=== PATIENT | female | born 1970 ===

== ENCOUNTER 2020-08-20 09:15 | Inpatient (IN) | payer OTHER ==
[~2020-08-20] VITALS: Ht 144.8 cm; Wt 98.4 kg
[2020-08-20] MEDS ORDERED: ZOLOFT100 MG PO (10:37)
[2020-08-20] MEDS ORDERED: SYNTHROID100 MCG PO (10:38)
[2020-08-20] MEDS ORDERED: PEPCID40 MG PO (10:38)
[2020-08-20] MEDS ORDERED: CLONAZEPAM0.5 MG PO (10:39)
[2020-08-20] MEDS ORDERED: SINGULAIR10 MG PO (10:39)
[2020-08-20] MEDS ORDERED: GABAPENTIN100 M2 PO (10:40)
[2020-08-20] MEDS ORDERED: SYMBICORT 16010.2 GM IH (10:41)
[2020-08-20] MEDS ORDERED: XOPENEX HFA15 GM IH (10:41)
[2020-08-20] MEDS ORDERED: GLUCOTROL10 MG PO (10:42)
[2020-08-27] MEDS ORDERED: AMITRIPTYLINE H50 MG (08:57)
[2020-08-27] MEDS ORDERED: ATORVASTATIN CA10 MG (08:57)
[2020-08-27] MEDS ORDERED: ATROVENT HFA12.9 GM (08:57)
[2020-08-27] MEDS ORDERED: ARTHRITIS PAIN650 MG (08:57)
[2020-08-27] MEDS ORDERED: AMITRIPTYLINE H25 MG (08:57)
[2020-08-27] MEDS ORDERED: IBANDRONATE SO150 MG (08:58)
[2020-08-27] MEDS ORDERED: VITAMIN D31250 MCG (08:58)
== END 2020-08-29 16:41 | DRG 470 ==
LOC: O/R 08-27 05:30 → SURH 08-27 05:30
PROVIDERS: ADMIT Orthopaedic Surgery; ATTEND Orthopaedic Surgery
PROC: 30233N1 Transfusion of Nonautologous Red Blood Cells into Peripheral Vein, Percutaneous Approach (ICD-10-PCS; 2020-08-27)
PROC: 0SRD0J9 Replacement of Left Knee Joint with Synthetic Substitute, Cemented, Open Approach (ICD-10-PCS; principal; 2020-08-27 07:00)
DX: M17.12 Unilateral primary osteoarthritis, left knee (principal); D62 Acute posthemorrhagic anemia; Z68.42 Body mass index [BMI] 45.0-49.9, adult; E66.8 Other obesity; E11.9 Type 2 diabetes mellitus without complications; Z79.84 Long term (current) use of oral hypoglycemic drugs